=== PATIENT | female | born 1990 | race Caucasian/White ===

== ENCOUNTER 2019-08-04 19:22 | Emergency (ER) | payer OTHER ==
[~2019-08-04] VITALS: Ht 170.2 cm; Wt 93.0 kg
[~2019-08-04 19:22] MED LIST: CIPR500T4 PO; IBUP-1561 PO; ONDA4TAB35 PO
[2019-08-04 19:42] VITALS: BP 144/81; PULSE 81; RESP 21; Ht 170.2 cm; Wt 93.0 kg
== END 2019-08-04 22:29 | disposition home or self-care (01) ==
LOC: FTE 19:22
DX: N39.0 Urinary tract infection, site not specified (principal)
CPT/HCPCS: 36415; 76705; 76830; 76856; 80053; 81001; 81025; 83690; 85025; 87086; Z7502; 81003